=== PATIENT | female | born 1995 | race Caucasian/White ===

== ENCOUNTER 2018-06-27 19:55 | Inpatient (IN) ==
[2018-06-27] MEDS ORDERED: Sod Chloride 0.9% Inj 1,000 ML IV.CONT PRN (21:20)
[2018-06-27] MEDS ORDERED: fentaNYL Citrate Inj 100 MCG/2 ML Ampul IV.PUSH PRN (21:20)
[2018-06-27] MEDS ORDERED: Sodium Chlor 0.9% Inj 500 ML IV.SIG PRN (21:20)
[2018-06-27] MEDS ORDERED: Sodium Chloride 0.9% 2 ML Flush PRN IV.FLUSH (21:24)
[2018-06-27] MEDS ORDERED: Citric Acid/Sodium Citrate Liq 30 ML UDC PO SCH (21:30)
[2018-06-27 21:57] LABS: Baso % (Auto) 0.2 % (0.0-2.0); Eos % (Auto) 0.3 % (0.0-4.0); Hematocrit 30.8 % (35.0-46.0); Hemoglobin 10.8 gm/dL (11.6-15.3); Lymph # (Auto) 1.4 th/mm3 (1.0-4.8); Lymph % (Auto) 20.6 % (9.0-44.0); Mean Corpuscular HGB Conc 35.1 % (32.0-36.0); Mean Corpuscular Hemoglobin 30.4 pg (27.0-34.0); Mean Corpuscular Volume 86.6 fL (80.0-100.0); Mean Platelet Volume 8.9 fL (7.0-11.0); Mono # (Auto) 0.7 th/mm3 (0.0-0.9); Mono % (Auto) 10.3 % (0.0-8.0); Neut # (Auto) 4.6 th/mm3 (1.8-7.7); Neut % (Auto) 68.6 % (16.0-70.0); Platelet Count 211 th/mm3 (150-450); Red Blood Count 3.55 mil/mm3 (4.00-5.30); White Blood Count 6.7 th/mm3 (4.0-11.0)
[2018-06-27] MEDS ORDERED: Oxytocin 30 Units/500ml Premix 30 UNITS/500 ML BAG IV.SIG ONE (22:00)
[2018-06-27 22:03] LABS: Amphetamine Urine With Conf Neg (Neg); Bacteria,Urine Occasional /hpf; Benzodiazepine Urine With Conf Neg (Neg); Bilirubin,Urine Negative (Negative); Clarity,Urine Clear (Clear); Color,Urine Straw (Yellw/Straw); Glucose,Urine (UA) Negative (Negative); Leukocyte Esterase,Urine Negative (Negative); Nitrite,Urine Negative (Negative); Specific Gravity,Urine 1.002 (1.002-1.035)
[2018-06-28] MEDS: fentaNYL Citrate Inj 100 MCG/2 ML Ampul IV.PUSH PRN ×3 (04:47→08:20)
--- NOTE | 2018-06-28 07:19 | P.OBGPN ---
S: Feeling good, contractions moderately painful, no leakage of fluid O: VS: Exam: 3-4, 50%, -1, cervix very posterior, AROM this check clear and bloody fluid. FHTs: 120s-130s, moderate variability, accelerations present, no decelerations TOCO: Contractions every 2-3 minutes A/P 23-year-old at 41 weeks and 0 days by 8-week ultrasound here today for induction of labor secondary to late term gestation. 1. IUP: Category 1 tracing -Cephalic by exam, GBS negative, female fetus, EFW on 06/15 = 2924g (38%), ant placent 2. IOL: Status post PV miso x1, cervix favorable, AROM this check (0740), Pitocin as needed. Anticipate .
--- NOTE | 2018-06-28 07:31 | MH ---
cc: Santana West MD DATE OF ADMISSION: 06/27/2018 CHIEF COMPLAINT: Induction of labor. HISTORY OF PRESENT ILLNESS: This patient is a 23-year-old G2, P0-0-1-0, who will be at 40 weeks and 6 days by her 8-week ultrasound with an estimated due date of 06/21/2018 for an induction of labor secondary to late-term gestation. The has been complicated by tobacco use prior to . PAST MEDICAL HISTORY: Tobacco use. ALLERGIES: NO KNOWN DRUG ALLERGIES. OBSTETRICAL HISTORY: In 2010, EAB. GYNECOLOGIC HISTORY: LMP 09/05/2017. SEXUALLY TRANSMITTED DISEASE HISTORY: Denies. FAMILY HISTORY: No pertinent positive family history. SURGICAL HISTORY: The patient denies. SOCIAL HISTORY: Endorses tobacco prior to . Denies drug or alcohol use. PHYSICAL EXAMINATION: Based on the encounter from 06/20/2018: VITAL SIGNS: Weight 171, blood pressure 138/74. GENERAL: Alert and oriented x3, resting comfortably in the bed. CARDIAC: Regular rate and rhythm. No murmurs, rubs or gallops. PULMONARY: Lungs are clear to auscultation bilaterally. ABDOMEN: Soft, gravid, nontender. GENITOURINARY: External genitalia normal appearing. Cervix 1, 50%, -3, membrane stripped. EXTREMITIES: No clubbing, cyanosis, 1 to 2+ pitting edema bilaterally. LABORATORIES: On 12/12/2017, hemoglobin 13.1, platelets 163. Blood type O positive, antibody negative. Rubella and varicella immune. VDRL nonreactive. Hepatitis B surface antigen negative. HIV negative. Sickle cell screen negative. Hepatitis C negative. Gonorrhea and chlamydia negative. Second trimester screen negative. Repeat blood work on 03/31/2018, hemoglobin 11.8, 1-hour Glucola 101. GBS negative. ASSESSMENT AND PLAN: This patient is a 23-year-old 2, para 0-0-1-0, who will be at 40 weeks and 6 days by an 8-week ultrasound with an estimated due date of 06/21/2018 for induction of labor: 1. Intrauterine . Will be placed on continuous monitoring - female fetus, group B streptococcus negative, estimated weight 7-1/2 to 8 pounds. 2. Induction of labor secondary to late-term gestation. Discussed risks, benefits and alternatives of induction. Aware of possible prolonged course. If cervix unfavorable, we will place p.v. misoprostol 25 mcg q.4 hours as tolerated. MD CHAIM Monroe/fredy , 04:52 PM , 05:00 PM KHADAR
[2018-06-28] MEDS ORDERED: Oxytocin 30 Units/500ml Premix 30 UNITS/500 ML BAG IV.SIG PRN (07:45)
[2018-06-28] MEDS ORDERED: Lidocaine PF 1% Inj 5 ML Vial ONE (07:52)
[2018-06-28] MEDS ORDERED: fentaNYL 2MCG-Bupiv 0.125% Epi 150 ML EPIDURAL ONE (07:55)
[2018-06-28] MEDS ORDERED: fentaNYL Citrate Inj 100 MCG/2 ML Ampul EPIDURAL ONE (08:50)
[2018-06-28] MEDS ORDERED: fentaNYL 2MCG-Bupiv 0.125% Epi 150 ML EPIDURAL PRN (08:50)
[2018-06-28] MEDS ORDERED: Sodium Chloride 0.9% 2 ML Flush BID IV.FLUSH SCH (09:00)
[2018-06-28] MEDS ORDERED: Lidocaine 1% Inj 50 ML Vial ONE (11:30)
--- NOTE | 2018-06-28 11:48 | P.OP ---
Date of procedure: 06/28/18 Surgeon: Santana West MD Operation and Findings: Preoperative diagnosis: 1. Intrauterine at 41 weeks and 0 days 2. Late term gestation Postop diagnosis 1. Same as above status post Procedure 1. Term spontaneous vaginal delivery Surgeon Dr. Santana West Carroting Machine Operator: [facility] labor and delivery staff Findings: 1. Viable female at 1123, Apgars 9 and 9, weight 3550grams 2. Intact placenta 3 vessel cord at 1127 3. Second-degree laceration repaired with 3-0 Vicryl Anesthesia: Epidural Specimen: Placenta to disposal Estimated blood loss: Less than 300 cc Fluid replacement: Lactated Ringer's and Pitocin Urine output: None recorded DVT prophylaxis: Control compression devices throughout the case Antibiotics: None required Counts: correct x2 Time out done: yes Disposition: Stable to Indications: This patient is a 23-year-old G2 now P1011 who presented as an induction secondary to the above diagnoses, she received 1 dose of misoprostol, her membranes were artificially ruptured, she progressed without further augmentation to complete I was called to the room at this time. Description of procedure: The patient began pushing after the bed was broken down, the head upon was allowed to restitute naturally for delivery with a supported perineum, with gentle downward guidance the anterior shoulder was delivered followed by gentle upper guidance for the posterior shoulder, the torso and lower extremities were delivered with ease and with continued perineal support. The infant had spontaneous cry and was placed on mom's abdomen for skin to skin contact, we allowed delayed cord clamping. After the cord was clamped and cut, cord blood was obtained. Pitocin was bolused and with fundal massage the placenta was delivered, there is minimal uterine bleeding and uterus was firm. The perineum, vagina and cervix were inspected and found a second degree laceration is repaired with 3-0 Vicryl in a standard fashion. The patient tolerated the procedure well and was left in the birthing suite with her .
[2018-06-28] MEDS ORDERED: Naloxone Inj 0.4 MG/ML Vial IV.PUSH PRN (11:49)
[2018-06-28] MEDS ORDERED: Acetaminophen 325 MG Tablet PO PRN (11:49)
[2018-06-28] MEDS ORDERED: Benzocaine 20% Top Spray 60 ML Can TOPICAL PRN (11:49)
[2018-06-28] MEDS ORDERED: Oxytocin 30 Units/500ml Premix 30 UNITS/500 ML BAG IV.CONT PRN (11:49)
[2018-06-28] MEDS ORDERED: Bisacodyl 10 MG Supp RECTAL PRN (11:49)
[2018-06-28] MEDS ORDERED: Diphtheria/Tetanus/Pertussis Vaccine Inj 0.5 ML Syringe IM ONE (16:00)
[2018-06-28] MEDS ORDERED: Measles/Mumps/Rubella Vaccine Inj 0.5 ML Vial SQ ONE (16:00)
[2018-06-28] MEDS ORDERED: Rho Immune Globulin Inj 1,500 UNIT/1.3 ML Vial IM ONE (16:00)
[2018-06-28] MEDS ORDERED: Varicella Vaccine Live 1350 UNITS/0.5 ML Vial SQ ONE (16:00)
[2018-06-28] MEDS: Witch Hazel 50%/Glyderin 12.5% 40 Pad Jar RECTAL PRN (17:18)
[2018-06-28] MEDS ORDERED: Zolpidem Tartrate 5 MG Tablet PO PRN (21:00)
[2018-06-29] MEDS: Senna/Docusate Sodium 8.6/50 MG Tablet PO SCH ×2 (03:02→20:18)
[2018-06-29 08:47] VITALS: O2SAT 96
--- NOTE | 2018-06-29 09:27 | P.PNOB ---
Subjective Post day: 1 Interval history: doing well nursing no signiifcant pain Objective Vital Signs/I&O: Vital Signs 06/28/18 09:28 06/28/18 09:45 06/28/18 10:25 Temperature Pulse Rate 72 71 91 H Respiratory Rate 18 18 Blood Pressure 110/69 129/92 H Pulse Oximetry 06/28/18 10:45 06/28/18 11:30 06/28/18 11:58 Temperature 99.1 F Pulse Rate 100 H 101 H Respiratory Rate 18 18 Blood Pressure 134/58 L 133/63 Pulse Oximetry 06/28/18 12:15 06/28/18 12:23 06/28/18 12:32 Temperature Pulse Rate 82 85 Respiratory Rate 18 18 Blood Pressure 129/66 128/90 Pulse Oximetry 06/28/18 12:45 06/28/18 13:00 06/28/18 13:49 Temperature 99.1 F Pulse Rate 76 68 67 Respiratory Rate 18 Blood Pressure 130/77 141/71 H 148/83 H Pulse Oximetry 06/28/18 20:00 06/29/18 08:00 Temperature 98.5 F 97.8 F Pulse Rate 74 73 Respiratory Rate 18 22 Blood Pressure 122/65 128/81 Pulse Oximetry 96 Result Diagrams: 06/27/18 20:48 Objective Remarks: GENERAL: Well-nourished, well-developed patient. CARDIOVASCULAR: Regular rate and rhythm without murmurs, gallops, or rubs. RESPIRATORY: Breath sounds equal bilaterally. No accessory muscle use. ABDOMEN/GI: Abdomen soft, non-tender. Fundus: Firm, non-tender at umbilicus. GENITOURINARY: Light to moderate bleeding. EXTREMITIES: No cyanosis or edema, non-tender, without signs of DVT. Medications and IVs: Active Medications Acetaminophen (Tylenol) 650 mg PO Q4H PRN PRN Reason: PAIN SCALE 1 TO 2 Last Admin: 06/28/18 17:17 Dose: 650 mg Al Hydroxide/Mg Hydroxide (Milk Of Magnesia Liq) 30 ml PO Q12H PRN PRN Reason: Mild Constipation Benzocaine (Americaine 20% Top [place]) 1 spray TOPICAL Q4H PRN PRN Reason: For Perineum Discomfort Last Admin: 06/28/18 17:19 Dose: 1 spray Bisacodyl (Dulcolax Supp) 10 mg RECTAL DAILY PRN PRN Reason: SEVERE CONSITIPATION Oxytocin (Pitocin 30 Units/Ns 500 Ml Premix) 30 units in 500 mls @ 100 mls/hr IV.CONT UNSCH PRN PRN Reason: Heavy bleeding Ibuprofen (Motrin) 800 mg PO Q8H PRN PRN Reason: For Cramping Last Admin: 06/29/18 07:48 Dose: 800 mg Lactulose (Lactulose Liq) 30 ml PO DAILY PRN PRN Reason: SEVERE CONSITIPATION Naloxone HCl (Narcan Inj) 0.1 mg IV.PUSH Q2M PRN PRN Reason: for opiate reversal Ondansetron HCl (Zofran Odt) 4 mg PO Q6H PRN PRN Reason: NAUSEA OR VOMITING Senna/Docusate Sodium (Elli-Colace) 1 tab PO BID LYN Last Admin: 06/29/18 03:02 Dose: Not Given Sennosides (Senokot) 17.2 mg PO Q12H PRN PRN Reason: Moderate Constipation Sodium Chloride (Ns Flush) 2 ml IV.FLUSH BID LYN Sodium Chloride (Ns Flush) 2 ml IV.FLUSH PRN PRN PRN Reason: FLUSH AFTER USING IV ACCESS Witch Sherry/Glycerin (Tucks Pads) 1 applicatio RECTAL QID PRN PRN Reason: HEMORRHOIDS Last Admin: 06/28/18 17:18 Dose: 1 applicatio Zolpidem Tartrate (Ambien) 5 mg PO HS PRN PRN Reason: SLEEP Assessment and Plan - Plan discharge home on PPD 2
[2018-06-30 07:39] VITALS: BP 120/80; PULSE 58; RESP 18; TEMP 97.7
--- NOTE | 2018-06-30 08:17 | P.PNOB ---
Subjective Post day: 2 Interval history: doing well, ready for discharge home today Objective Vital Signs/I&O: Vital Signs 06/29/18 20:00 06/30/18 02:00 06/30/18 07:38 Temperature 98.6 F 98.0 F 97.7 F Pulse Rate 65 74 58 L Respiratory Rate 18 20 18 Blood Pressure 142/85 H 123/76 120/80 Result Diagrams: 06/27/18 20:48 Objective Remarks: GENERAL: Well-nourished, well-developed patient. CARDIOVASCULAR: Regular rate and rhythm without murmurs, gallops, or rubs. RESPIRATORY: Breath sounds equal bilaterally. No accessory muscle use. ABDOMEN/GI: Abdomen soft, non-tender. Fundus: Firm, non-tender at umbilicus. GENITOURINARY: Light to moderate bleeding. EXTREMITIES: No cyanosis or edema, non-tender, without signs of DVT. Medications and IVs: Active Medications Acetaminophen (Tylenol) 650 mg PO Q4H PRN PRN Reason: PAIN SCALE 1 TO 2 Last Admin: 06/28/18 17:17 Dose: 650 mg Al Hydroxide/Mg Hydroxide (Milk Of Magnesia Liq) 30 ml PO Q12H PRN PRN Reason: Mild Constipation Benzocaine (Americaine 20% Top [place]) 1 spray TOPICAL Q4H PRN PRN Reason: For Perineum Discomfort Last Admin: 06/28/18 17:19 Dose: 1 spray Bisacodyl (Dulcolax Supp) 10 mg RECTAL DAILY PRN PRN Reason: SEVERE CONSITIPATION Oxytocin (Pitocin 30 Units/Ns 500 Ml Premix) 30 units in 500 mls @ 100 mls/hr IV.CONT UNSCH PRN PRN Reason: Heavy bleeding Ibuprofen (Motrin) 800 mg PO Q8H PRN PRN Reason: For Cramping Last Admin: 06/30/18 02:33 Dose: 800 mg Lactulose (Lactulose Liq) 30 ml PO DAILY PRN PRN Reason: SEVERE CONSITIPATION Naloxone HCl (Narcan Inj) 0.1 mg IV.PUSH Q2M PRN PRN Reason: for opiate reversal Ondansetron HCl (Zofran Odt) 4 mg PO Q6H PRN PRN Reason: NAUSEA OR VOMITING Senna/Docusate Sodium (Elli-Colace) 1 tab PO BID LYN Last Admin: 06/29/18 20:18 Dose: 1 tab Sennosides (Senokot) 17.2 mg PO Q12H PRN PRN Reason: Moderate Constipation Sodium Chloride (Ns Flush) 2 ml IV.FLUSH BID LYN Sodium Chloride (Ns Flush) 2 ml IV.FLUSH PRN PRN PRN Reason: FLUSH AFTER USING IV ACCESS Witch Sherry/Glycerin (Tucks Pads) 1 applicatio RECTAL QID PRN PRN Reason: HEMORRHOIDS Last Admin: 06/28/18 17:18 Dose: 1 applicatio Zolpidem Tartrate (Ambien) 5 mg PO HS PRN PRN Reason: SLEEP Assessment and Plan - Diagnosis (1) Vaginal delivery Code(s): O80 - Encounter for full-term uncomplicated delivery Status: Acute - Plan PPD #2 discharge home on PPD 2 routine PP care Discharge Planning: routine - Attending Attestation pt seen by me
[2018-06-30] MEDS: Senna/Docusate Sodium 8.6/50 MG Tablet PO SCH (08:23)
[2018-06-30] MEDS: Witch Hazel 50%/Glyderin 12.5% 40 Pad Jar RECTAL PRN (11:36)
== END 2018-06-30 14:09 | disposition home or self-care (01) ==
LOC: H2E 19:55 → H1EA 06-28 13:29
PROVIDERS: ADMIT Obstetrics & Gynecology; ATTEND Obstetrics & Gynecology